=== PATIENT | female | born 1995 | race Hispanic/Latino ===

== ENCOUNTER 2021-01-22 15:52 | Emergency (ER) | payer SELFPAY ==
[2021-01-22 15:56] VITALS: BP 108/52
--- NOTE | 2021-01-22 16:29 | Emergency Department Report ---
- General Chief complaint: Skin/Abscess/Foreign Body Stated complaint: BOIL WITH CONCERN Time Seen by Provider: 01/22/21 16:00 Source: patient Mode of arrival: Ambulatory Limitations: No Limitations - History of Present Illness Initial comments: Patient is a 25-year-old female presents emergency room with complaints of a possible abscess to the right buttock that began a week ago. She states initially it began as a small ingrown hair. She states that she used her tweezers and was messing with a region. She states that it became more painful and began to swell. She states that she has seen a small amount of drainage. She denies any fever or chills or bleeding. Allergy to Reglan. She reports that her last menstrual cycle was in November but states that she took a test and reports it was negative. - Related Data Previous Rx's Medication Instructions Recorded Last Taken Type Azithromycin [Zithromax Z-PEGGY] 0 mg PO DAILY #6 tab 11/25/19 Unknown Rx Benzonatate [Tessalon Perles] 100 mg PO Q8HR PRN #30 capsule 11/25/19 Unknown Rx Cetirizine HCl/Pseudoephedrine 1 each PO Q12HR #20 tab.er.12h 11/25/19 Unknown Rx [Zyrtec-D Tablet] Acetaminophen [Tylenol] 650 mg PO Q8HR PRN #20 capsule 01/22/21 Unknown Rx Clindamycin [Clindamycin CAP] 300 mg PO TID 7 Days #21 capsule 01/22/21 Unknown Rx Mupirocin [Bactroban 2% OINT] 1 applic TP TID #1 tube 01/22/21 Unknown Rx Allergies Allergy/AdvReac Type Severity Reaction Status Date / Time metoclopramide [From Reglan] Allergy Unknown Verified 11/25/19 06:03 Abscess Boil HPI - HPI Chief Complaint: Skin/Abscess/Foreign Body Stated Complaint: BOIL WITH CONCERN Time Seen by Provider: 01/22/21 16:00 Home Medications: Previous Rx's Medication Instructions Recorded Last Taken Type Azithromycin [Zithromax Z-PEGGY] 0 mg PO DAILY #6 tab 11/25/19 Unknown Rx Benzonatate [Tessalon Perles] 100 mg PO Q8HR PRN #30 capsule 11/25/19 Unknown Rx Cetirizine HCl/Pseudoephedrine 1 each PO Q12HR #20 tab.er.12h 11/25/19 Unknown Rx [Zyrtec-D Tablet] Acetaminophen [Tylenol] 650 mg PO Q8HR PRN #20 capsule 01/22/21 Unknown Rx Clindamycin [Clindamycin CAP] 300 mg PO TID 7 Days #21 capsule 01/22/21 Unknown Rx Mupirocin [Bactroban 2% OINT] 1 applic TP TID #1 tube 01/22/21 Unknown Rx Allergies/Adverse Reactions: Allergies Allergy/AdvReac Type Severity Reaction Status Date / Time metoclopramide [From Reglan] Allergy Unknown Verified 11/25/19 06:03 ED Review of Systems ROS: Stated complaint: BOIL WITH CONCERN Other details as noted in HPI Comment: All other systems reviewed and negative ED Past Medical Hx - Social History Smoking Status: Current Every Day Smoker - Medications Home Medications: Home Medications Medication Instructions Recorded Confirmed Last Taken Type Azithromycin [Zithromax Z-PEGGY] 0 mg PO DAILY #6 tab 11/25/19 Unknown Rx Benzonatate [Tessalon Perles] 100 mg PO Q8HR PRN #30 capsule 11/25/19 Unknown Rx Cetirizine HCl/Pseudoephedrine 1 each PO Q12HR #20 tab.er.12h 11/25/19 Unknown Rx [Zyrtec-D Tablet] Acetaminophen [Tylenol] 650 mg PO Q8HR PRN #20 capsule 01/22/21 Unknown Rx Clindamycin [Clindamycin CAP] 300 mg PO TID 7 Days #21 capsule 01/22/21 Unknown Rx Mupirocin [Bactroban 2% OINT] 1 applic TP TID #1 tube 01/22/21 Unknown Rx ED Physical Exam - General Limitations: No Limitations General appearance: alert, in no apparent distress - Head Head exam: Present: atraumatic, normocephalic - Eye Eye exam: Present: normal appearance - ENT ENT exam: Present: mucous membranes moist - Neurological Exam Neurological exam: Present: alert, oriented X3 - Psychiatric Psychiatric exam: Present: normal affect, normal mood - Skin Skin exam: Present: warm, dry, other (2 cm area of induration present to the right gluteus, no perineum involvement, no perianal involvement, small opening with a very small amount of drainage, no signficant fluctuance, no significant surrounding cellulitis, management consulting: YARELIS medina) ED Course Vital Signs 01/22/21 15:55 Temperature 98.7 F Pulse Rate 78 Respiratory 18 Rate Blood Pressure 108/52 [Right] O2 Sat by Pulse 97 Oximetry ED Medical Decision Making - Medical Decision Making Patient is a 25-year-old female presents emergency room with complaints of a possible abscess to the right buttock that began a week ago. She states initially it began as a small ingrown hair. She states that she used her tweezers and was messing with a region. She states that it became more painful and began to swell. She states that she has seen a small amount of drainage. She denies any fever or chills or bleeding. Allergy to Reglan. She reports that her last menstrual cycle was in November but states that she took a test and reports it was negative.2 cm area of induration present to the right gluteus, no perineum involvement, no perianal involvement, small opening with a very small amount of drainage, no signficant fluctuance, no significant surrounding cellulitis, management consulting: YARELIS medina. Examination presents distant with small early abscess. There is already opening present with a small amount of drainage. Does not need I&D at this time. Patient given antibiotics and discussed warm compresses and sitz baths. Discussed the importance of having area reexamined in the next 3 days. Discussed with patient that if it worsened she would likely need I&D in the future. Discussed strict return precautions. Advised patient Please use medication as prescribed. Pleas e keep area clean and dry. Please do warm compresses. May do sitz baths. Follow-up with a primary care doctor to have area reexamined in the next 3 days. Return to emergency room for any new or worsening symptoms including but not limited to worsening pain, worsening swelling,worsening redness, fever, vomiting, etc. Critical care attestation.: If time is entered above; I have spent that time in minutes in the direct care of this critically ill patient, excluding procedure time. ED Disposition Clinical Impression: Abscess Disposition: 01 HOME / SELF CARE / HOMELESS Is pt being admited?: No Does the pt Need Aspirin: No Condition: Stable Instructions: Skin Abscess, How to Take a Sitz Bath Additional Instructions: Please use medication as prescribed. Please keep area clean and dry. Please do warm compresses. May do sitz baths. Follow-up with a primary care doctor to have area reexamined in the next 3 days. Return to emergency room for any new or worsening symptoms including but not limited to worsening pain, worsening swelling,worsening redness, fever, vomiting, etc. Prescriptions: Mupirocin [Bactroban 2% OINT] 1 applic TP TID #1 tube Clindamycin [Clindamycin CAP] 300 mg PO TID 7 Days #21 capsule Acetaminophen [Tylenol] 650 mg PO Q8HR PRN #20 capsule PRN Reason: pain Referrals: COSME CABEZAS MD [Staff Physician] - 2-3 Days [facility] [Provider Group] - 2-3 Days Time of Disposition: 16:28 Print Language: NIGERIEN
== END 2021-01-22 16:57 | disposition home or self-care (01) ==
LOC: ED 15:52
DX: L02.31 Cutaneous abscess of buttock (principal); F17.200 Nicotine dependence, unspecified, uncomplicated; Z79.899 Other long term (current) drug therapy; Z88.8 Allergy status to other drugs, medicaments and biological substances
CPT/HCPCS: 99281

== ENCOUNTER 2021-05-25 12:54 | Emergency (ER) | payer SELFPAY ==
[2021-05-25 13:55] VITALS: BP 113/75
== END 2021-05-25 17:44 | disposition left against medical advice (07) ==
LOC: ED 12:54
DX: M54.50 Low back pain, unspecified (principal); Z53.21 Procedure and treatment not carried out due to patient leaving prior to being seen by health care provider

== ENCOUNTER 2021-05-27 08:26 | Emergency (ER) | payer SELFPAY ==
[2021-05-27 09:06] VITALS: BP 103/77
[2021-05-27 10:13] LABS: Bilirubin,Urine NEG (Negative); Blood,Urine NEG (Negative); Color,Urine Yellow (Yellow); Mucus,Urine FEW /HPF; Protein,Urine <15 mg/dL mg/dL (Negative); RBC,Urine < 1.0 /HPF (0.0-6.0); Urobilinogen,Urine < 2.0 mg/dL (<2.0); WBC,Urine < 1.0 /HPF (0.0-6.0)
[2021-05-27 10:31] LABS: HCG Qualitative,Urine Negative (Negative)
[2021-05-27] MEDS ORDERED: dexAMETHasone 4 MG/ML VIAL IM ONE (14:19)
--- NOTE | 2021-05-27 14:20 | Emergency Department Report ---
ED Back Pain/Injury HPI - General Chief Complaint: Abdominal Pain Stated Complaint: LOWER BCK/AB PAIN/NO PERIOD 6WKS Time Seen by Provider: 05/27/21 14:18 Source: patient Limitations: No Limitations - History of Present Illness Initial Comments: 26 yo comes to ER with lbp. No associated symptoms. No trauma. Neuro intact. Had implant placed 6 m ago and has had no menses since. no dysuria. no abd pain. no fever or chills. no s/s cauda equina Complaint: back pain -: week(s) Similar Symptoms Previously: No Place: home Radiation: none Consistency: constant Improves With: immobilization Worsens With: movement Associated Symptoms: denies other symptoms - Related Data Previous Rx's Medication Instructions Recorded Last Taken Type Cyclobenzaprine [Flexeril] 10 mg PO TID PRN #10 tablet 05/27/21 Unknown Rx Ibuprofen [Motrin] 800 mg PO Q8HR PRN #30 tablet 05/27/21 Unknown Rx predniSONE [Deltasone] 20 mg PO DAILY #5 tablet 05/27/21 Unknown Rx Allergies Allergy/AdvReac Type Severity Reaction Status Date / Time metoclopramide [From Reglan] Allergy Unknown Verified 11/25/19 06:03 ED Review of Systems ROS: Stated complaint: LOWER BCK/AB PAIN/NO PERIOD 6WKS Other details as noted in HPI Comment: All other systems reviewed and negative ED Past Medical Hx - Past Medical History Medical history: no medical history ED Back Pain Physical Exam - Exam General: Vital signs noted. No distress. Alert and acting appropriately. Back/Abdomen: No Abdominal Tenderness, No Perithoracic Tenderness, No Perilumbar Tenderness, No Sacroiliac Tenderness, No Flank Tenderness, No Straight Leg Raise Pain Neuro: Yes Normal Sensation, Yes Normal DTR's, Yes Normal Gait, No Motor Weakness ED Course Vital Signs 05/27/21 09:02 Temperature 98.5 F Pulse Rate 60 Respiratory 20 Rate Blood Pressure 103/77 O2 Sat by Pulse 97 Oximetry ED Medical Decision Making - Medical Decision Making Labs 05/27/21 09:11 Urine Color Yellow Urine Turbidity Clear Urine pH 5.0 Ur Specific Hecker 1.020 Urine Protein <15 mg/dl Urine Glucose (UA) Neg Urine Ketones Neg Urine Blood Neg Urine Nitrite Neg Urine Bilirubin Neg Urine Urobilinogen < 2.0 Ur Leukocyte Esterase Neg Urine WBC (Auto) < 1.0 Urine RBC (Auto) < 1.0 U Epithel Cells (Auto) 2.0 Urine Mucus Few Urine HCG, Qual Negative Vital Signs 05/27/21 09:02 Temperature 98.5 F Pulse Rate 60 Respiratory 20 Rate Blood Pressure 103/77 O2 Sat by Pulse 97 Oximetry ua noted vss pain with movement given decadron IM dc home with dc plan of care including diet, activity, meds and follow up . She verbalizes understanding of plan of care - Differential Diagnosis ro uti/preg Critical care attestation.: If time is entered above; I have spent that time in minutes in the direct care of this critically ill patient, excluding procedure time. ED Disposition Clinical Impression: Low back pain Disposition: HOME / SELF CARE / HOMELESS Is pt being admited?: No Does the pt Need Aspirin: No Condition: Stable Instructions: Back Exercises, [id number], Abdominal Pain (ED) Prescriptions: predniSONE [Deltasone] 20 mg PO DAILY #5 tablet Cyclobenzaprine [Flexeril] 10 mg PO TID PRN #10 tablet PRN Reason: Muscle Spasm Ibuprofen [Motrin] 800 mg PO Q8HR PRN #30 tablet PRN Reason: Pain, Moderate (4-6) Referrals: PRIMARY CARE, [Primary Care Provider] - 3-5 Days COSME CABEZAS MD [Staff Physician] - 3-5 Days BENITO BARRETT MD [Staff Physician] - 3-5 Days Time of Disposition: 14:19
== END 2021-05-27 15:50 | disposition home or self-care (01) ==
LOC: ED 08:26
DX: M54.50 Low back pain, unspecified (principal); Z88.8 Allergy status to other drugs, medicaments and biological substances; Z79.899 Other long term (current) drug therapy
CPT/HCPCS: 81001; 81025; 96372; 99283; J1100